=== PATIENT | male | born 1965 | race Caucasian/White ===

== ENCOUNTER 2023-08-14 09:21 | Day surgery (SDC) | payer BC, OTHER ==
[~2023-08-14 09:21] MED LIST: Lactated Ringers 1,000 ML IV SCH; Midazolam 1 MG/ML 2 ML SDV ONE; Propofol 200 MG/20 ML SDV ONE; Sodium Chloride 0.9% 10 ML Syringe FLUSH PRN
[2023-08-14] MEDS ORDERED: Lactated Ringers 1,000 ML IV SCH (09:30)
[2023-08-14] MEDS ORDERED: Sodium Chloride 0.9% 10 ML Syringe FLUSH PRN (09:30)
[2023-08-14 11:29] VITALS: BP 131/67; PULSE 69
== END 2023-08-14 12:25 | disposition home or self-care (01) ==
LOC: LL.SDS 09:21
PROVIDERS: ATTEND Surgery
DX: Z12.11 Encounter for screening for malignant neoplasm of colon (principal); Z88.2 Allergy status to sulfonamides; Z87.891 Personal history of nicotine dependence
CPT/HCPCS: 00812; 45378; J2250; J2704; J7120

== ENCOUNTER 2023-09-25 07:50 | Day surgery (SDC) | payer BC ==
[2023-09-25] MEDS ORDERED: Lactated Ringers 1,000 ML IV SCH (08:00)
[2023-09-25] MEDS ORDERED: Sodium Chloride 0.9% 10 ML Syringe FLUSH PRN (08:00)
[2023-09-25] MEDS ORDERED: Midazolam 1 MG/ML 2 ML SDV ONE (08:21)
[2023-09-25] MEDS ORDERED: Ketamine 500 mg/10 ML MDV ONE (08:21)
[2023-09-25] MEDS ORDERED: Propofol 200 MG/20 ML SDV ONE (08:22)
[2023-09-25] MEDS ORDERED: fentaNYL 100 MCG/2 ML SDV ONE (08:22)
[2023-09-25] MEDS ORDERED: Ketamine 500 mg/10 ML MDV IVPUSH ONE (09:30)
[2023-09-25] MEDS ORDERED: Lidocaine 2% with EPINEPHrine 1:100,000 20 ML MDV INJECT ONE (09:53)
[2023-09-25] MEDS ORDERED: Bupivacaine 0.25% 10 ML SDV INJECT ONE (09:54)
[2023-09-25 13:51] VITALS: BP 150/75; PULSE 86
== END 2023-09-25 12:05 | disposition home or self-care (01) ==
LOC: LL.SDS 07:50
PROVIDERS: ATTEND Surgery
DX: K42.9 Umbilical hernia without obstruction or gangrene (principal); I10 Essential (primary) hypertension; Z88.2 Allergy status to sulfonamides
CPT/HCPCS: J2250; J2704; J3010; J3490; J7120